=== PATIENT | female | born 2000 ===

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

== ENCOUNTER 2018-05-03 15:28 | Emergency (ER) | payer MEDICAID, OTHER ==
[2018-05-03 16:04] VITALS: BP 126/70; PULSE 93; RESP 16; TEMP 98.6; O2SAT 100
--- NOTE | 2018-05-03 18:23 | ED PDOC ---
Lower Extremity Pain/Injury Time Seen by Provider: 05/03/18 16:04 Chief Complaint (Nursing): Lower Extremity Problem/Injury Chief Complaint (Provider): Left Leg Pain History Per: Patient History/Exam Limitations: no limitations Onset/Duration Of Symptoms: Days (x2) Current Symptoms Are (Timing): Still Present Additional Complaint(s): 17 year old female presents to the ED for evaluation of sudden onset posterior left thigh pain radiating down the left calf beginning two days ago. Patient reports she was seen by PMD earlier today because multiple members of her family have history of DVTs and PEs, but was advised to come into ED for ultra sound. Otherwise, denies chest pain, shortness of breath, history of previous DVT / PE, prior hormonal therapy, trauma, back pain, and incontinence. PMD: Anum Landeros Past Medical History Reviewed: Historical Data, Nursing Documentation, Vital Signs Vital Signs: Last Vital Signs Temp 98.6 F 05/03/18 16:01 Pulse 93 H 05/03/18 16:01 Resp 16 05/03/18 16:01 BP 126/70 05/03/18 16:01 Pulse Ox 100 05/03/18 16:01 - Medical History PMH: No Chronic Diseases - Surgical History Surgical History: No Surg Hx - Family History Family History: States: Other Other Family History: DVT / PE - Social History Current smoker - smoking cessation education provided: No Alcohol: None Drugs: Denies - Home Medications Home Medications: Ambulatory Orders Medication Instructions Recorded Amoxicillin and Clavulanate 02/07/13 Potassium 875 mg- Cetirizine 02/07/13 DiphenhydrAMINE [Benadryl] 25 mg PO TID #20 cap 02/07/13 Naproxen 02/07/13 predniSONE [Prednisone] 40 mg PO DAILY #10 tab 02/07/13 Nitrofurantoin Macrocrystals 100 mg PO BID #14 cap 04/18/17 [Macrobid] Cyclobenzaprine [Cyclobenzaprine 10 mg PO Q8 PRN #10 tab 05/03/18 HCl] Ibuprofen [Motrin Tab] 800 mg PO TID PRN #10 tab 05/03/18 - Allergies Allergies/Adverse Reactions: Allergies Allergy/AdvReac Type Severity Reaction Status Date / Time amoxicillin [From Augmentin] Allergy SHORTNESS Verified 05/03/18 16:00 OF BREATH clavulanic acid Allergy SHORTNESS Verified 05/03/18 16:00 [From Augmentin] OF BREATH naproxen Allergy SHORTNESS Verified 05/03/18 16:00 OF BREATH Penicillins Allergy SHORTNESS Verified 05/03/18 16:00 OF BREATH Wells Criteria for PE - Wells Criteria for Pulmonary Embolism Clinical Signs and Symptoms of DVT: No P.E is #1 Diagnosis, or Equally Likely: No Heart Rate >100: No Immobilization at least 3 days;Surgery previous 4 weeks: No Previous, objectively diagnosed PE or DVT: No Hemoptysis: No Malignancy w/treatment within 6 months, or palliative: No Total Score: 0 Review of Systems ROS Statement: Except As Marked, All Systems Reviewed And Found Negative Cardiovascular: Negative for: Chest Pain Respiratory: Negative for: Shortness of Breath Genitourinary Female: Negative for: Incontinence Musculoskeletal: Positive for: Leg Pain (left thigh pain radiating down calf). Negative for: Back Pain Physical Exam - Reviewed Nursing Documentation Reviewed: Yes Vital Signs Reviewed: Yes - Physical Exam Appears: Positive for: No Acute Distress Pulses-Dorsalis Pedis (L): 2+ Pulses-Dorsalis Pedis (R): 2+ Extremity: Negative for: Calf Tenderness (or swelling bilaterally), Other (Prince's sign bilaterally; warmth or erythema to left lower extremity) - ECG O2 Sat by Pulse Oximetry: 100 (RA) Pulse Ox Interpretation: Normal Medical Decision Making Medical Decision Making: Time: 1622 Initial Impression: r/o DVT, likely sciatica Initial Plan: --US left lower extremity US Findings: There is normal flow, compressibility, and augmentation of the left common femoral, femoral, and popliteal veins. The left posterior tibial vein appears patent. Impression: No evidence of deep venous thrombosis in the left lower extremity Scribe Attestation: Documented by Nataly Calles, acting as a scribe for Kenn E Pormentilla, PA-C. Provider Scribe Attestation: All medical record entries made by the Scribe were at my direction and personally dictated by me. I have reviewed the chart and agree that the record accurately reflects my personal performance of the history, physical exam, medical decision making, and the department course for this patient. I have also personally directed, reviewed, and agree with the discharge instructions and disposition. Disposition - Clinical Impression Clinical Impression: Sciatica - Patient ED Disposition Is Patient to be Admitted: No - Disposition Referrals: [facility] [Outside] [facility] [Outside] Disposition: Routine/Home Disposition Time: 18:21 Condition: STABLE Additional Instructions: FOLLOW UP WITH YOUR DOCTOR FOR FURTHER EVALUATION RETURN TO ED IMMEDIATELY IF SYMPTOMS WORSEN EVAN GLORIA, thank you for letting us take care of you today. Your provider was Stephanie Somers MD and you were treated for LT LEG PAIN. The emergency medical care you received today was directed at your acute symptoms. If you were prescribed any medication, please fill it and take as directed. It may take several days for your symptoms to resolve. Return to the Emergency Department if your symptoms worsen, do not improve, or if you have any other problems. Please contact your doctor or call one of the physicians/clinics you have been referred to that are listed on the Patient Visit Information form that is included in your discharge packet. Bring any paperwork you were given at discharge with you along with any medications you are taking to your follow up visit. Our treatment cannot replace ongoing medical care by a primary care provider outside of the emergency department. Thank you for allowing the [facility] team to be part of your care today. If you had an X-Ray or CT scan: A Radiologist will review the ED reading if any change in treatment is needed we will contact you. If you had a blood, urine, or wound culture: It will take several days for the results, if any change in treatment is needed we will contact you. If you had an STI test: It will take 48 hours for the results. Please call after 1 week if you have not heard back. Prescriptions: Cyclobenzaprine [Cyclobenzaprine HCl] 10 mg PO Q8 PRN #10 tab PRN Reason: Muscle Spasm Ibuprofen [Motrin Tab] 800 mg PO TID PRN #10 tab PRN Reason: Pain Instructions: Sciatica (DC) Forms: [facility] (Wolof), [facility] ED School/Work Excuse Print Language: YAKUT
--- NOTE | 2018-05-03 18:36 | US ---
Left lower extremity ultrasound. Indication: Indication Technique: Duplex ultrasound evaluation of the left lower extremity Comparison: None available Findings: There is normal flow, compressibility, and augmentation of the left common femoral, femoral, and popliteal veins. The left posterior tibial vein appears patent. Impression: No evidence of deep venous thrombosis in the left lower extremity.
== END 2018-05-03 18:31 | disposition home or self-care (01) ==
LOC: H.ER 15:28
DX: M54.32 Sciatica, left side (principal)